=== PATIENT | female | born 1995 | race Caucasian/White ===

== ENCOUNTER 2025-04-23 10:03 | Outpatient (AMB) | payer OTHER, SELFPAY ==
--- OUTSIDE RECORDS SUMMARY | 2025-04-23 10:09 | XMS_ITS | Clinical Summary ---
Author Organization [facility] Address [address] [place] [id number] Care Team Providers Care Creative Arts Music Therapist Name Role Phone Ricardo Okeefe MD [facility] Eleni Kothari CARDIOLOGY NURSE PRACTITIONER Primary Care Provider + Allergies Active Allergy Reactions Criticality Noted Date Comments Allspice Anaphylaxis,Unknown, Othe r (See Comments) High 11/10/2014 Apple GI Intolerance,Nause a Only 07/30/2017 Carrot Itching 07/30/2017 Carrot Juice Itching 07/30/2017 Fruit Extracts Unknown,Other (See Comments) Medium 04/15/2015 Gluten Nausea Only Medium 07/23/2017 Gluten Protein GI Intolerance Medium 07/23/2017 Ibuprofen Hives,Other (See Comments) High 11/10/2014 Nsaids (Non-Steroidal Anti-Inflammatory Drug) Hives Medium 04/15/2015 Pineapple Itching 07/30/2017 strawberries Pineapple Fruit Extract Itching 07/30/2017 strawberries Pollen Extracts GI Intolerance 07/30/2017 Sulfa (Sulfonamide Antibiotics) Rash,Hives Medium 04/15/2015 Sulfamethoxazole-Trimet hoprim Hives,Other (See Comments) 11/26/2018 Medications CETIRIZINE HCL (ZYRTEC ORAL) Take by mouth. A ctive fluticasone propionate (FLONASE) 50 mcg/actuation nasal spray use 1 spray in each nostril QD 1 Inhaler 1 9 Active albuterol HFA (VENTOLIN; PROVENTIL) 90 mcg/actuation aerosol inhalerIndicat ions:Exercise- induced asthma Inhale 2 puffs every 6 hours as needed for wheezing or shortness of breath. 1 each 3 3 Active EPINEPHrine (EPIPEN) 0.3 mg/0.3 mL injectionIndic ations:Anaphyl actic reaction due to other food products, subsequent encounter 0.3 mL (0.3 mg total) by Intramuscular - THIGH route as needed for anaphylaxis Administer to thigh only.. 2 each 1 3 Active erythromycin (ILOTYCIN) 5 mg/gram (0.5 %) ophthalmic ointment Administer to both eyes 4 times a day Apply 1/4 inch inside lower lid to affected eye. 1 g 3 Active dextroamphetam ine-amphetamin e ER (ADDERALL XR) 10 MG 24 hr capsule Active benzonatate (TESSALON PERLES) 100 MG capsule Take 2 capsules (200 mg total) by mouth 3 times a day as needed for cough for up to 42 days. 42 capsule 1 3 Active predniSONE (DELTASONE) 50 MG tablet Take 1 tablet (50 mg total) by mouth daily for 5 days. 5 tablet 3 Active Active Problems Problem Noted Date Diagnosed Date Exercise-induced asthma 11/12/2022 Pelvic pain 03/12/2022 Dysmenorrhea 2022 Overview (11/12/2022): Last Assessment & Plan: Would likely benefit from another trial of ocp's. Will revisit after labs and imaging and labs done. Vaginismus (not due to a general medical conditi on) 2022 Overview (11/12/2022): Last Assessment & Plan: Referral to Pelvic Floor therapist Pt instructed to purchase a dilator kit online and start using. Intestinal malabsorption 06/28/2017 Overview (11/12/2022): Overview: She had positive tests that were high titer. She had a biopsy that was not diagnostic. She is off gluten currently. She is currently off lactose as well. She had positive tests that were high titer. She had a biopsy that was not diagnostic. She is off gluten currently. She is currently off lactose as well. Patient reports positive testing 07/14 Allergic reaction of correct medicinal substance properly administered 02/28/2017 Overview (11/12/2022): Overview: Allergy shot reaction 02/12 Allergy shot reaction 02/12 Anaphylactic reaction due to other food products, subsequent encounter 11/19/2016 Overview (11/12/2022): Overview: History of reacting to allspice. Skin testing neg- 11/12. History of reacting to allspice. Skin testing neg- 11/12. Perennial allergic rhinitis 09/17/2016 Overview (11/12/2022): Overview: 09/12: skin testing- positive for trees, grasses, weeds, mites, cat, dog, horse, feather. Started IT: 12/13 Overview: 09/12: skin testing- positive for trees, grasses, weeds, mites, cat, dog, horse, feather. Started IT: 12/13 She stopped in 05/16 (there had been a reaction). 09/12: skin testing- positive for trees, grasses, weeds, mites, cat, dog, horse, feather. Started IT: 12/13 She stopped in 05/16 (there had been a reaction). Wheezing 09/17/2016 Overview (11/12/2022): Overview: Uses prn albuterol. Uses prn albuterol. Attention or concentration deficit 12/16/2012 Myopia 03/26/2007 Resolved Problems Problem Noted Date Diagnosed Date Resolved Date Allergy to other foods 03/14/200508/09 Immunizations Immunization Administration Dates Next Due COVID-19 Vaccine (easy2map) Original Formulation (prior to Apr 2021) 08/19/2020,07/29/2020 DTaP Vaccine (INFANRIX/DAPTA ISABELLA) PEDIATRIC 04/01/1998,11/05/1994,1993,06/12,1993 HPV Quadrivalent 09/24/2006,05/27/2006, 6 Hep B, Adolescent or Pediatric 03/05/1995,1994,05/31/1994 Hib (HbOC) 11/05/1994, 4,1993,04/10 Influenza Vaccine - EGG FREE MDCK - SDV (FLUCELVAX) 02/12/2020 Influenza Vaccine - LIVE ATT ENUATED (FLUMIST) 04/06/2009,03/29/2008 Influenza Vaccine - STANDARD - SDV (FLUZONE/FLUARIX/FLULAVAL/AFLURIA) 01/25/2023,02/03/2021 Influenza, Unspecified 02/09/2011 MMR Live vaccine 04/01/1998,05/31/1994 Meningococcal Quadrivalent V accine (MENACTRA) 04/06/2009 OPV 04/01/1998, 5,1993,06/12,1993 Poliovirus vaccine IPV (IPOL) 1993, 994,1993 Tdap Vaccine (BOOSTRIX/ADACEL) 10/02/2020,2010 Tetanus 03/14/2005 Family History Medical History Relation Comments Anxiety disorder Father Asthma Father Ulcerative colitis Father Pancreatic cancer Maternal Uncle Diverticulosis Mother Relation Status Comments Father Alive Maternal Uncle Mother Alive Social History Tobacco Use Types Packs/Day Years Used Date Smoking Tobacco: Never Smokeless Tobacco: Never Tobacco Cessation:Counseling Given: Not Answered Alcohol Use Standard Drinks/Week Comments Not Currently 0 (1 standard drink = 0.6 oz pur e alcohol) Humiliation, Afraid, Rape, and Kick questionnair e Answer Date Recorded Within the last year, have y ou been afraid of your partner or ex-partner? No 11/12/2022 Within the last year, have y ou been humiliated or emotionally abused in other ways by your partner or ex-partner? No 11/12/2022 Physically Abused Not on file 11/12/2022 Sexually Abused Not on file 11/12/2022 Social Connection and Isolation Panel Answer Date Recorded In a typical week, how many times do you talk on the phone with family, friends, or neighbors? Three times a week 11/12/2022 Frequency of Social Gatherin gs with Friends and Family Not on file 11/12/2022 Attends Catholic Services Not on file 11/12 Active Member of Clubs or Organizations Not on f ile 11/12/2022 Attends Club or Organization Meetings Not on shana e 11/12/2022 Marital Status Not on file 11/12/2022 Overall Financial Resource Strain (CARDIA) Answe r Date Recorded How hard is it for you to pa y for the very basics like food, housing, medical care, and heating? Not very hard 11/12/2022 PRAPARE - Transportation Answer Date Re corded Lack of Transportation (Medical) Not on file 11/12/2022 In the past 12 months, has l ack of transportation kept you from meetings, work, or from getting things needed for daily living? No 11/12/2022 Housing Stability Vital Sign Answer Dandy e Recorded In the last 12 months, was t here a time when you were not able to pay the mortgage or rent on time? No 11/12/2022 Number of Places Lived in the Last Year Not on f ile 11/12/2022 In the last 12 months, was t here a time when you did not have a steady place to sleep or slept in a custodial (including now)? No 11/12/2022 Intimate Partner Violence Answer Date R ecorded Within the last year, have y ou been humiliated or emotionally abused in other ways by your partner or ex-partner? No 11/12/2022 Within the last year, have y ou been afraid of your partner or ex-partner? No 11/12/2022 Physically Abused Not on file 11/12/2022 Sexually Abused Not on file 11/12/2022 Housing Stability Answer Date Recorded In the last 12 months, was t here a time when you did not have a steady place to sleep or slept in a custodial (including now)? No 11/12/2022 In the last 12 months, was t here a time when you were not able to pay the mortgage or rent on time? No 11/12/2022 Number of Places Lived in the Last Year Not on f ile 11/12/2022 Comments No Sex and Gender Information Value Date Recorded Sex Assigned at Not on file Legal Sex Female 4:35 PM EST Gender Identity Not on file Sexual Orientation Not on file Occupation Industry Job Start Date Job End Date unemployed-grad in 08/2015 Not on file Not on file No t on file Last Filed Vital Signs Vital Sign Reading Time Taken Comments Blood Pressure 110/70 11/12/2022 12:59 PM EDT Pulse 73 04/24/2023 1:24 PM EST Temperature 37.1 C (98.8 F) 04/24/2023 1:24 PM EST Respiratory Rate 16 04/24/2023 1:24 PM EST Oxygen Saturation 98% 04/24/2023 1:24 PM EST Inhaled Oxygen Concentration - - Weight 73.9 kg (163 lb) 11/12/2022 12:59 PM EDT Height 166.4 cm (5' 5.5 ) 11/12/2022 12:59 PM ED T Body Mass Index 26.71 11/12/2022 12:59 PM EDT Plan of Treatment Health Maintenance Due Date Last Done Comments Blood Pressure 1993 Depression Screening 2005 Pneumococcal Vaccine (1 of 2 - PCV) 02/09/2012 HPV/Cotest 2023 COVID-19 Vaccine (3 - season) 2024 08/19/2020, 07/29/2020 Influenza Vaccine (#1) 2024 3, 02/03/2021, 02/12/2020, Additional history exists Cervical Cancer Screening 02/06/2025 Pap Smear 02/06/2025 02/06/2022, 10/15/2017 DTaP,Tdap,and Td Vaccines (9 - Td or Tdap) 10/02/2030 10/02/2020, 06/12/2010, 03/14/2005, Additional history exists Meningococcal Vaccines Completed 04/06/2009 Hepatitis C Screening Discontinued Meningococcal B Vaccines Aged Out No longer eligible based on patient's age to complete this topic Procedures Procedure Name Priority Date/Time Associated Diagnosis Comments LIQUID-BASED PAP, REFLEX HPV IF ASC-US Routine 10/15/2017 3:17 PM EDT Encounter for gynecological examination without abnormal finding from Last 3 Months or Most Recently Relevant to Health Maintenance Results * LB PAP, Screen, reflex HPV if ASC-US (10/15/2017 3:17 PM EDT) Case Report Gynecologic Cytology Report Case: [id number] Authorizing Provider: Dotty Zapata CNM Collected: 10/15/2017 03:17 PM First Screen: CARLOS ENRIQUE Broussard Received: 10/16/2017 11:41 AM Specimen: LIQUID-BASED PAP, SCREENING, Cervix 10/25/2017 6:34 PM EDT [facility] Adequacy SATISFACTORY FOR EVALUATION, ENDOCERVICAL/NÚÑEZ SFORMATION ZONE COMPONENT PRESENT 10/25/2017 6:34 PM EDT [facility] General Categorization NEGATIVE 10/25/2017 6:34 PM EDT [facility] Interpretation NEGATIVE FOR INTRAEPITHELIAL LESION / MALIGNANCY. 10/25/2017 6:34 PM EDT [facility] at 1834 EDT Educational Note This specimen was successfully pre-screened using the [employer] Automated ThinPrep Imaging System. Following automated imaging, selected toro from the slide were reviewed by a crop adjuster, and if indicated, by a pathologist. Cervicovaginal Cytology ( Pap Smear ) is a screening test with inherent, but low, probability of error, and is intended to aid in the detection of cervical squamous cell carcinoma and its precursors. Although very effective, the false negative rate for the ThinPrep method has been reported in the literature to be approximately 2%. 10/25/2017 6:34 PM EDT [facility] Clinical Information Routine Diagnosis: Encounter for gynecological examination without abnormal finding Code: Z01.419 10/25/2017 6:34 PM EDT [facility] Gross Description Received 1 ThinPrep preservative fluid collection vial labeled with the patient's name and medical record number or date of . 10/25/2017 6:34 PM EDT [facility] Specimen from genital system (specimen) CERVIX UTERI STRUCTURE / Unknown 10/15/2017 3:17 PM EDT 10/16/2017 11:41 AM EDT us Dotty RAI PATHOLOGY/CYTOLOGY ORDERABLES Fi nal Result [facility] [address] [place] [address] from Last 3 Months or Most Recently Relevant to Health Maintenance Insurance [facility] Care Teams Creative Arts Music Therapist Relationship Specialty Start Date End Date Eleni Mauricio FNP [address] [place] [phone] PCP - General Nurse Practitioner 11/26/24 Ricardo Okeefe MD 10/25/14
--- OUTSIDE RECORDS SUMMARY | 2025-04-23 10:09 | XMS_ITS | Encounter Summary ---
Author Organization [facility] Address [address] [place] [address] Care Team Providers Care Case Loader Operator Name Role Phone Ricardo Okeefe MD Unavailable Unavailab Melyssa Gonsalez MD Primary Care Provider Unava Jose Avitia MD Primary Care Provider [phone] Eleni Mauricio [facility] Primary Care Provider + Encounter Details Date Type Department Care Team (Late st Contact Info) Description 06/04/2017 Orders Only [facility] [address] [place] [address] [phone] Eleni Mauricio FNP [address] [place] [phone] Food allergy (Primary Dx); Wheezing Social History Tobacco Use Types Packs/Day Years Used Date Smoking Tobacco: Never Smokeless Tobacco: Never Alcohol Use Standard Drinks/Week Comments Yes 0 (1 standard drink = 0.6 oz pur e alcohol) socially Comments No Sex and Gender Information Value Date Recorded Sex Assigned at Not on file Legal Sex Female 4:35 PM EST Gender Identity Not on file Sexual Orientation Not on file Occupation Industry Job Start Date Job End Date unemployed-grad in 08/2015 Not on file Not on file No t on file documented as of this encounter Plan of Treatment Not on file documented as of this encounter Procedures Procedure Name Priority Date/Time Associated Diagnosis Comments H PYLORI, UREA BREATH TEST Routine 06/04/2017 5:49 PM EST Food allergy Wheezing documented in this encounter Results * H. pylori Breath Test, Adult (06/04/2017 5:49 PM EST) H. pylori Breath Test Negative Negative 06/06/2017 1:48 PM EST [facility] Comment: INTERPRETIVE INFORMATION: H. pylori Breath Test A negative result does not rule out the possibility of H.pylori infection. If clinical signs are suggestive of H. pylori infection, retest with a new specimen or an alternate method. Known causes of false-negative results include: 1. Use of antibiotics, proton pump inhibitors, and bismuth preparations during the preceding 2 weeks. 2. Administration of the breath test less than 4 weeks after completion of definitive therapy to eradicate H. pylori. 3. Premature or late collection of the post-dose specimen. Known causes of false-positive results include: 1. Patients with achlorhydria. 2. Rinsing the testing solution in the mouth, which can allow contact with urease-positive bacteria. 3. The presence of other gastric spiral organisms such as Helicobacter heilmanii. Performed by [facility], [address] [place] [address] [email or web address], Noe Dhillon MD, Lab. Director Exhaled air (substance) LUNG STRUCTURE / Unknown 06/04/2017 5:49 PM EST 06/04/2017 8:57 PM EST Eleni Mauricio [facility] LAB BLOOD ORDERABLES Fin al Result [facility] [address] [place] [phone] documented in this encounter Visit Diagnoses Diagnosis Food allergy- Primary Dermatitis due to food taken internally Wheezing documented in this encounter Care Teams Case Loader Operator Relationship Specialty Start Date End Date LabargeMelyssa MD PCP - General Family Practice 12/12/15 01/22/21 Jose Serna MD [address] [place] [phone] PCP - General Family Practice 01/23/21 11/25/24 Eleni Mauricio FNP [address] [place] [phone] PCP - General Nurse Practitioner 11/26/24 Ricardo Okeefe MD 10/25/14 documented as of this encounter
--- OUTSIDE RECORDS SUMMARY | 2025-04-23 10:09 | XMS_ITS | Clinical Summary ---
Author Organization [facility] Address [facility] [place] [address] Phone [email or web address] Care Team Providers Care Mycology Teacher Name Role Phone Unavailable Primary Care Provider Unavailabl e Allergies Active Allergy Reactions Criticality Noted Date Comments Apple Nausea Only 07/30/2017 Daucus Carota Itching 07/30/2017 Fruit Extracts Other (see comments) Medium 04/15/2015 Gluten Meal Nausea Only,GI intolerance Medium 07/24/19 18 Ibuprofen Hives,Rash,Other (se e comments) High 11/10/2014 Pollen Extract Other (see comments) 07/30/2017 Sulfa Antibiotics Hives,Rash Medium 04/15/2015 Sulfamethoxazole-Trimethopr im Hives,Other (see comments),Rash,GI intolerance Low 11/26/2018 Medications EPINEPHrine (EPIPEN) 0.3 MG/0.3ML injection syringe 0.3 mg once daily as needed. 3 Active cetirizine (ZyrTEC) 10 MG tablet Take 10 mg by mouth 1 (one) time each day. Active albuterol HFA (ProAir HFA) 108 (90 Base) MCG/ACT inhalerIndication s:Exercise-induce d asthma Inhale 2 puffs every 6 (six) hours if needed for wheezing or shortness of breath. 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 0.3 mL 4 Active Active Problems Problem Noted Date Diagnosed Date Anxiety 12/18/2022 IBS (irritable bowel syndrome) 12/18/2022 Exercise-induced asthma 11/12/2022 Assessment & Plan (04/14/2024 12:10 PM [facility] Asthma is unchanged. The patient is experiencing monthly daytime asthma symptoms. She is experiencing no nighttime asthma symptoms. Medications: no change. Orders: albuterol HFA (ProAir HFA) 108 (90 Base) MCG/ACT inhaler; Inhale 2 puffs every 6 (six) hours if needed for wheezing or shortness of breath. Take 2 puffs 20 minutes prior to exertional activities Dysmenorrhea 2022 Overview (12/18/2022): Last Assessment & Plan: Would likely benefit from another trial of ocp's. Will revisit after labs and imaging and labs done. Last Assessment & Plan: Would likely benefit from another trial of ocp's. Will revisit after labs and imaging and labs done. Allergic reaction of correct medicinal substance properly administered 02/28/2017 Overview (12/18/2022): Overview: Allergy shot reaction 02/12 Allergy shot reaction 02/12 Anaphylactic reaction due to other food products, subsequent encounter 11/19/2016 Overview (12/20/2022): Overview: History of reacting to allspice. Skin testing neg- 11/12. History of reacting to allspice. Skin testing neg- 11/12. Attention or concentration deficit 12/16/2012 Immunizations Immunization Administration Dates Next Due COVID-19 Pfizer 12yrs+ (Seas onal) COMIRNATY mRNA 30 mcg/0.3 mL (CVX-309) 07/11/2023 Influenza, (Afluria Fluarix Flulaval Fluzone) quad, PF (CVX-150) 01/25/2023 Influenza, unspecified (CVX-88) 02/03/2021,02/11 Family History Medical History Relation Name Comments Asthma Father G Cat Allergy Autoimmune disease Father G Ulcerativ e Colitis age 57 Depression Father G Diabetes Maternal Grandmother L Type 1 Heart disease Maternal Grandmother L Experi enced Heart Attacks Diverticulitis Mother partial colon resection Cancer Mother's Brother P Pancreatic Relation Name Status Comments Father G Maternal Grandmother L Mother Mother's Brother P Social History Tobacco Use Types Packs/Day Years Used Date Smoking Tobacco: Never Passive Smoke Exposure: Never Smokeless Tobacco: Never Tobacco Cessation:Counseling Given: Not Answered Alcohol Use Standard Drinks/Week Comments Not Currently 1 (1 standard drink = 0.6 oz pure alcohol) maybe a couple drinks every few months Intimate Partner Violence Answer Date R ecorded Insults You Not on file 10/22/2020 Threatens You Not on file 10/22/2020 Screams at You Not on file 10/22/2020 Physically Hurt Not on file 10/22/2020 Intimate Partner Violence Score Not on file 10/22/2020 Alcohol Use Answer Date Recorded Alcohol Use Status Not Currently 12/18/2022 Depression Answer Date Recorded PHQ Total Score 2 12/18/2022 Stress Answer Date Recorded Stress in your Life Not on file 03/04/2024 Dealing with Stress 3 03/04/2024 Comments No Sex and Gender Information Value Date Recorded Sex Assigned at Female 10/02/2022 1:48 PM CDT Legal Sex Female 12:42 AM CDT Gender Identity Female 10/02/2022 1:48 PM CDT Sexual Orientation Not on file Last Filed Vital Signs Vital Sign Reading Time Taken Comments Blood Pressure 120/69 04/14/2024 11:35 AM PST Pulse 65 04/14/2024 11:35 AM PST Temperature 36.8 C (98.2 F) 04/14/2024 11:35 AM PST Respiratory Rate 18 04/14/2024 11:35 AM PST Oxygen Saturation 98% 04/14/2024 11:35 AM PST Inhaled Oxygen Concentration - - Weight 72.8 kg (160 lb 6.4 oz) 04/14/2024 11:35 AM PST Height 165.1 cm (5' 5 ) 04/14/2024 11:35 AM PST Body Mass Index 26.69 04/14/2024 11:35 AM PST Plan of Treatment Health Maintenance Due Date Last Done Comments Dental Cleaning/Exam 1993 HPV only / HPV + Pap 1993 HPV Immunization (1 - 2-dose series) 02/09/2004 Hepatitis B Immunization (1 of 3 - 19+ 3-dose series) 02/09/2012 Covid-19 Immunization (6 - season) 2024 07/11/2023, 01/16/2022, 03/11/2021, Additional history exists Influenza Immunization (#1) 2024 01/25/2023, 02/26/2022, 02/03/2021, Additional history exists Cervical Cancer Screening Combo 02/28/2026 Pap only testing 02/28/2026 02/28/2023 Tetanus Diphtheria and Pertussis Immunization (2 - Td or Tdap) 10/02/2030 10/02/2020 Asthma Spirometry Discontinued 10/25/2023, 07/11/2023 HIB Immunization Aged Out No longer e ligible based on patient's age to complete this topic Hepatitis A Immunization Aged Out No longer eligible based on patient's age to complete this topic Pneumococcal Immunization Discontinued Polio Immunization Aged Out No longer eligible based on patient's age to complete this topic Varicella Immunization Aged Out No lo nger eligible based on patient's age to complete this topic Procedures Procedure Name Priority Date/Time Associated Diagnosis Comments SPIROMETRY WITH FLOW VOLUME LOOP Routine 10/25/2023 4:06 PM PDT Wellness examination from Last 3 Months or Most Recently Relevant to Health Maintenance Results * Spirometry with Flow Volume Loop CPT 41999 (10/25/2023 4:06 PM PDT) us Filipe Presley MD PFT ORDERABLES Final Result from Last 3 Months or Most Recently Relevant to Health Maintenance Insurance PILY ARIZA COPAY
--- OUTSIDE RECORDS SUMMARY | 2025-04-23 10:09 | XMS_ITS | Encounter Summary ---
Author Organization [facility] Address [address] [place] [address] Care Team Providers Care Plunger Machine Operator Name Role Phone Ricardo Okeefe MD Unavailable Unavailab Melyssa Gonsalez MD Primary Care Provider Unava Jose Avitia MD Primary Care Provider [phone] Eleni Mauricio Primary Care Provider + Encounter Details Date Type Department Care Team (Latest Contact Info) Description 08/26/2017 Lab Requisition [facility] [address] [place] [phone] Dotty Zapata CNM [address] [address] Other specified noninflammatory disorders of vagina Social History Tobacco Use Types Packs/Day Years Used Date Smoking Tobacco: Never Smokeless Tobacco: Never Alcohol Use Standard Drinks/Week Comments No 0 (1 standard drink = 0.6 oz [...] Procedure Name Priority Date/Time Associated Diagnosis Comments CULTURE, GENITAL Routine 08/26/2017 5:49 PM EDT Other specified noninflammatory disorders of vagina documented in this encounter Results * Culture, Genital (08/26/2017 5:49 PM EDT) Culture Normal addis 08/28/2017 11:29 AM EDT [facility] Specimen from genital system (specimen) CERVIX UTERI STRUCTURE / Unknown 08/26/2017 5:49 PM EDT 08/26/2017 5:49 PM EDT us Dotty RAI MICROBIOLOGY - GENERAL ORDERABLE S Final Result [facility] [address] [place] [address], documented in this encounter Visit Diagnoses Diagnosis Other specified noninflammatory disorders of vagina documented in this encounter Care Teams Plunger Machine Operator Relationship Specialty Start Date End Date Melyssa Ch MD PCP - General Family Practice 12/12/15 01/22/21 Jose Serna MD [address] [place] [phone] PCP - General Family Practice 01/23/21 11/25/24 Eleni Mauricio FNP [address] [place] [phone] PCP - General Nurse Practitioner 11/26/24 Ricardo Okeefe MD 10/25/14 documented as of this encounter
--- OUTSIDE RECORDS SUMMARY | 2025-04-23 10:09 | XMS_ITS | Encounter Summary ---
Author Organization [facility]al [facility] Address [address] [place] [address] Care Team Providers Care Dredge Pumper Name Role Phone Ricardo Okeefe MD Unavailable Unavailab Melyssa Gonsalez MD Primary Care Provider Unava Jose Avitia MD Primary Care Provider [phone] Eleni Mauricio Primary Care Provider + Encounter Details Date Type Department Care Team (Latest Contact Info) Description 10/16/2017 Lab Requisition [facility] [address] [place] [address] [phone] Dotty Zapata CNM [address] [address] Encounter for gynecological examination without abnormal finding Social History Tobacco Use Types Packs/Day Years [...] Procedure Name Priority Date/Time Associated Diagnosis Comments MISCELLANEOUS TEST [facility] Routine 10/15/2017 3:17 PM EDT Encounter for gynecological examination without abnormal finding LIQUID-BASED PAP, REFLEX HPV IF ASC-US Routine 10/15/2017 3:17 PM EDT Encounter for gynecological examination without abnormal finding documented in this encounter Results * [facility] (10/15/2017 3:17 PM EDT) [facility] Result SEE NOTE 10/18/2017 3:58 AM EDT [facility] Comment: Test name Result Flag Units RefIntvl HPV, High Risk by TMA Negative INTERPRETIVE INFORMATION: HPV High Risk by TMA, ThinPrep This test detects E6/E7 viral messenger RNA of the high-risk HPV types 16, 18, 31, 33, 35, 39, 45, 51, 52, 56, 58, 59, 66, and 68 associated with cervical cancer and its precursor lesions. Cross-reactivity with low-risk HPV genotypes 26, 67, 70, and 82 may occur. Sensitivity may be affected by specimen collection methods, stage of infection, and the presence of interfering substances. Results should be interpreted in conjunction with other available laboratory and clinical data. This test is intended for medical purposes only and is not valid for the evaluation of suspected sexual abuse or for other forensic purposes. HPV testing should not be used for screening or management of atypical squamous cells of undetermined significance (ASCUS) in women under age 21. Performed by [facility], [address] [place] [address] [email or web address], Noe Dhillon MD, Lab. Director Specimen of unknown material (specimen) 10/15/2017 3:17 PM EDT 10/16/2017 5:07 PM EDT us Dotty Zapata CNM BODY FLUIDS AND STOOLS ORDERABLE S Final Result [facility] [address] [phone] * LB PAP, Screen, reflex HPV if ASC-US (10/15/2017 3:17 PM EDT) Case Report Gynecologic Cytology Report Case: [id number] Authorizing Provider: Dotty Zapata CNM Collected: 10/15/2017 [...] / MALIGNANCY. 10/25/2017 6:34 PM EDT [facility] at 1834 EDT Educational Note This specimen was successfully pre-screened using the [employer] Automated ThinPrep Imaging System. Following automated imaging, selected toro from the slide were reviewed by a methods specialist, and if indicated, by a pathologist. Cervicovaginal [...] EDT 10/16/2017 11:41 AM EDT us Dotty Zapata CNM PATHOLOGY/CYTOLOGY ORDERABLES Fi nal Result [facility] [address] [place] [address] documented in this encounter Visit Diagnoses Diagnosis Encounter for gynecological examination without abnormal finding documented in this encounter Care Teams Dredge Pumper Relationship Specialty Start Date End Date Melyssa Ch MD PCP - General Family Practice 12/12/15 01/22/21 Jose Serna MD [address] [place] [phone] PCP - General Family Practice 01/23/21 11/25/24 Eleni Mauricio FNP [address] [place] [phone] PCP - General Nurse Practitioner 11/26/24 Ricardo Okeefe MD 10/25/14 documented as of this encounter
--- NOTE | 2025-04-23 11:18 | AM.OFFWIN_ITS ---
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 She also feels itchy eyes with production of some pus since yesterday. Allergies ibuprofen Allergy (Intermediate, Verified 04/23/25 11:31) Hives sulfamethoxazole (From Bactrim) Allergy (Intermediate, Verified 04/23/25 11:31) hives trimethoprim (From Bactrim) Allergy (Intermediate, Verified 04/23/25 11:31) hives Do you need a note to return to daycare/school/sports/work: No HPI HPI Comments History of Present Illness Details History of Present Illness The patient is a 30-year-old female presenting with a two-day history of symptoms including blocked ears, subjective fever, body aches, chills, and eye discharge. - The patient reports feeling unwell for about two days, starting with a sensation of her ears being blocked. - She felt feverish and recorded a tempe rature in the high 98s to low 99s, reaching 99.9?F last night. - Associated symptoms include body stiff ness, achiness, and chills. - She experienced mild, self-resolved na usea yesterday. No vomiting or diarrhea - The patient has a known history of ast hma and reports that she seems to get bronchitis every Rosas. - She reports some chest tightness but d enies shortness of breath or wheezing. - She has used her rescue inhaler once r ecently for these symptoms. Review of Systems - General: Reports feeling feverish with a temperature up to 99.9?F, body stiffness, achiness, and chills. - Eyes: Reports waking with discharge wi thout eye pain - Ears: Reports ears feeling blocked wit h a sensation of drainage. - Throat: Reports pain with talking. No trouble swallowing - Respiratory: Reports some chest tightn ess. Denies shortness of breath or wheezing. - Gastrointestinal: Reports mild nausea that has since subsided. Denies vomiting or diarrhea. Physical Exam General Appearance: Normal appearance, well developed. No acute distress HEENT: Normocephalic, atraumatic. No significant conjunctival injection. Clear watery discharge noted from both eyes without mucopurulent discharge. Middle ear effusions noted bilaterally No erythema or bulging of the membrane itself.Clear nasal drainage present Oropharynx clear without erythema or exudate. No cervical lymphadenopathy palpated. Cardiac: Regular rate and rhythm. No murmurs. Pulmonary: No respiratory distress. Clear to auscultation bilaterally. No wheezing or crackles heard. Musculoskeletal: Moving all extremities spontaneously and against gravity. Mental Status: Alert and Oriented x 3 Psychiatric: Normal mood. Normal affect. Physical Exam Vital Signs: Last Vital Signs Temp 99.4 F 04/23/25 11:22 Pulse 89 04/23/25 11:22 BP 108/70 04/23/25 11:22 Pulse Ox 98 04/23/25 11:22 Oxygen Delivery Method Room Air 04/23/25 11:22 BMI result Body Mass Index 28.3 Results AMB Rapid Strep AMB Rapid Strep Negative Last Edit by Elvin Silveira MA on 04/23/25 11:44 Results Reviewed Results Reviewed: Laboratory Last Values Strep Scn Rapid Clinic Negative 04/23/25 11:39 Assessment & Plan Assessment & Plan (1) Viral conjunctivitis: Code(s): B30.9 - Viral conjunctivitis, unspecified (2) Viral URI: Code(s): J06.9 - Acute upper respiratory infection, unspecified Plan - The patient's presentation with low-grade fever, myalgias, chills, and upper respiratory symptoms, along with a negative rapid strep test, is most consistent with a viral illness. - A respiratory panel for COVID-19, influenza, and RSV is pending. - Advised supportive care, including rest and increased fluid intake. - Discussed clear drainage from the eyes without significant conjunctival injection or mucopurulent discharge is consistent with viral conjunctivitis. Recommended warm compresses to the eyes. - An hgkl-ygj-xefkjas antihistamine such as Brigid or Zyrtec may help with nasal drainage and eye itching. - Prescribed benzonatate (Tessalon Perles) for cough, to be taken up to every 8 hours as needed, particularly at bedtime to aid sleep. - Advised to use her rescue inhaler every 4-6 hours as needed for chest tightness, wheezing, or coughing attacks. - Instructed to monitor for worsening symptoms such as fevers above 100.4?F, increased shortness of breath, worsening cough, or chest pain and seek medical attention if these symptoms occur. Patient was informed and verbally consented to the use of an ambient scribe for clinic note documentation during the visit. Orders: Orders AMB Rapid Strep Screen 04/23/25 Syl Farooq PA-C Z13.9 - Encounter for screening, unspecified SARS-CoV2/FLU/RSV 04/23/25 Cee Ruth MD R09.89 - Other specified symptoms and signs involving the circulatory and respiratory systems Medications: New benzonatate 200 mg PO TID PRN 20 caps 0RF cough Cee Ruth MD Coding Level of Care Code New Pt Level 3 (91571) Diagnoses Viral conjunctivitis B30.9 Viral URI J06.9
[2025-04-23 11:22] VITALS: BP 108/70; PULSE 89; TEMP 37.4; O2SAT 98; BMI 28.3
== END 2025-04-23 12:16 | disposition home or self-care (01) ==
PROVIDERS: Visit Provider Family Medicine
DX: Z13.9 Encounter for screening, unspecified (principal)

== ENCOUNTER 2025-04-23 10:03 | Outpatient (REF) | payer OTHER, SELFPAY ==
[2025-04-23 15:33] LABS: Resp Syncy Virus RNA Qual PCR NEGATIVE (Negative); SARS COV2 PCR INHOUSE NEGATIVE (Negative)
== END 2025-04-23 10:04 | disposition home or self-care (01) ==
LOC: HO.LAB 10:03
PROVIDERS: Family Medicine
DX: B30.9 Viral conjunctivitis, unspecified (principal); J06.9 Acute upper respiratory infection, unspecified; B97.89 Other viral agents as the cause of diseases classified elsewhere
CPT/HCPCS: 87637; 87880

== ENCOUNTER 2025-04-27 08:02 | Outpatient (AMB) | payer OTHER, SELFPAY ==
[2025-04-27 08:06] VITALS: BP 110/60; PULSE 100; O2SAT 98; BMI 28.6
--- NOTE | 2025-04-27 08:06 | AM.OFFWIN_ITS ---
Intake Vital Signs 04/27/25 08:06 Height 5 ft 5 in Weight 172 lb BMI 28.6 BP 110/60 Blood Pressure Location Rt brachial Position Sitting Pulse 100 Pulse Source Pulse Oximeter Pulse Oximetry (%) 98 Oxygen Delivery Method Room Air Intake Visit Reasons: EP-lt eye swollen & itchy Intake Note: Patient presents c/o left eye redness, swelling, watery since last night Patient Tobacco Use Status: Never used Tobacco Allergies ibuprofen Allergy (Intermediate, Verified 04/27/25 08:10) Hives sulfamethoxazole (From Bactrim) Allergy (Intermediate, Verified 04/27/25 08:10) hives trimethoprim (From Bactrim) Allergy (Intermediate, Verified 04/27/25 08:10) hives HPI HPI Comments History of Present Illness Details Patient is a 30yo F who presents to office with L eye symptoms She was seen on 04/23 for URI symptoms; tested negative for Covid/Flu She states her congestion and cough are improving and thought she was getting better States last night she rubbed her L eye once and had increased irritation and purulent discharge She has been wearing glasses; her neice at home is + pink eye on antibiotic drops + worsening irritation and discharge thr oughout hours last night Woke up this morning with + L eyelid edema and discharge crusted shut Pt denies additional trauma or injury No visual changes 0/10 pain currently She is visiting and is traveling home tomorrow [facility] Social History Patient Tobacco Use Status: Never used Tobacco Review of Systems Const Denies chills and Denies fever(s) Eyes Denies blurry vision, Denies change in vision, Reports eye discharge, Reports irritation, Reports itchy eyes, Denies eye pain, Reports requires corrective lenses and Denies photophobia ENT Denies otalgia and Reports nasal congestion Card Denies dyspnea Resp Denies cough and Denies dyspnea Aller/Immun Reports itchy eyes Physical Exam Exam Exam: General: Non-toxic, NAD. Speaking full sentences. Skin: Warm dry throughout L upper eyelid + edematous with slight erythema. No other periorbital edema or erythema appreciated. No rashes noted Eye: EOMI, PERRLA. No pain with EOM. No photophobia. L eye + conjunctival erythema with yellow discharge crusted along bottom eyelid lashes. No FB noted under L upper or lower eyelid. No ttp L periorbital region Respiratory: No respiratory distress Neurology: Alert. No aphasia or facial droop. Gait without abnormality Psych: Good mood and affect Vital Signs: Last Vital Signs Pulse 100 04/27/25 08:06 BP 110/60 04/27/25 08:06 Pulse Ox 98 04/27/25 08:06 Oxygen Delivery Method Room Air 04/27/25 08:06 BMI result Body Mass Index 28.6 Eyes Direct Ophthalmoscopy: No photophobia Assessment & Plan Assessment & Plan (1) Conjunctivitis: Code(s): H10.9 - Unspecified conjunctivitis Qualifiers: Conjunctivitis type: acute Acute conjunctivitis type: bacterial Laterality: left Qualified Code(s): H10.32 - Unspecified acute conjunctivitis, left eye Plan: Patient seen and evaluated. + L conjunctivitis on exam Ofloxacin to pharmacy Discussed glasses use, hand hygiene, pillow case cleaning, head elevation, warm compress Patient gave verbal understanding and had no additional questions or concerns at time of discharge All questions answered Medications: New ofloxacin 0.3% put 1-2 drps into affected L eye every 4h (while awake) x 2 days, then 1-2 drps 4 times/day days 3-7 ophthalmic (eye) 10 mL 0RF Coding Level of Care Code Est Pt Level 3 (42957) Diagnoses Acute bacterial conjunctivitis of left eye H10.32 Conjunctivitis type: acute Acute conjunctivitis type: bacterial Laterality: left
--- OUTSIDE RECORDS SUMMARY | 2025-04-27 09:27 | XMS_ITS | Clinical Summary ---
Author Organization Marycruz Beal [facility] Address [address] [place] [address] Care Team Providers Care Airborne Operations Superintendent Name Role Phone Ricardo Okeefe MD [facility] Eleni Kothari ENVIRONMENTAL HEALTH OFFICER Primary Care Provider + Allergies Active Allergy [...] Immunization Administration Dates Next Due COVID-19 Vaccine ([email or web address]) Original Formulation (prior to Apr 2021) 08/19/2020,07/29/2020 [...] and Family Not on file 11/12/2022 Attends [employer] Not on file 11/12 Active Member [...] place to sleep or slept in a retirement (including now)? No 11/12/2022 Intimate Partner Violence [...] place to sleep or slept in a retirement (including now)? No 11/12/2022 In the last [...] EDT) Case Report Gynecologic Cytology Report Case: [id number] Authorizing Provider: Dotty Zapata CNM Collected: 10/15/2017 [...] This specimen was successfully pre-screened using the [employer] Automated ThinPrep Imaging System. Following automated imaging, selected toro from the slide were reviewed by a managed care specialist, and if indicated, by a pathologist. [...] ORDERABLES Fi nal Result [facility] [address] [place] [address] from Last 3 Months or Most Recently Relevant to Health Maintenance Insurance [facility] Care Teams Airborne Operations Superintendent Relationship Specialty Start Date End Date Eleni Mauricio FNP [address] [place] [phone] PCP - General Nurse Practitioner 11/26/24 Ricardo Okeefe MD 10/25/14
--- OUTSIDE RECORDS SUMMARY | 2025-04-27 09:27 | XMS_ITS | Clinical Summary ---
Author Organization [facility] Address [place] [address] Phone [email or web address] Care Team Providers Care Game Artist Name Role Phone Unavailable Primary Care Provider [...] 11/12/2022 Assessment & Plan (04/14/2024 12:10 PM [facility]): Asthma is unchanged. The patient is experiencing [...] * Spirometry with Flow Volume Loop CPT 56332 (10/25/2023 4:06 PM PDT) us Filipe Presley MD PFT ORDERABLES Final Result from Last 3 Months or Most Recently Relevant to Health Maintenance Insurance PILY ARIZA COPAY
--- OUTSIDE RECORDS SUMMARY | 2025-04-27 09:27 | XMS_ITS | Encounter Summary ---
Author Organization [facility]ruz Beal [facility] Address [address] [place] [address] Care Team Providers Care Fish Hatchery Inspector Name Role Phone Ricardo Okeefe MD Unavailable Unavailab Melyssa Gonsalez MD Primary Care Provider Unava Jose Avitia MD Primary Care Provider [phone] Eleni Mauricio Primary Care Provider + Encounter Details Date Type Department Care Team (Latest Contact Info) Description 10/16/2017 Lab Requisition [facility] [address] [place] [address] [phone] Dotty Zapata CNM [address] [address] Encounter for gynecological examination without abnormal finding [...] finding documented in this encounter Results * [facility] (10/15/2017 3:17 PM EDT) [facility] Result SEE NOTE 10/18/2017 3:58 AM EDT [facility] Comment: Test name Result Flag Units [...] in women under age 21. Performed by [facility], [address] [place] [address] [email or web address], Noe Dhillon MD, Lab. Director Specimen of unknown material (specimen) 10/15/2017 3:17 PM EDT 10/16/2017 5:07 PM EDT us Dotty Zapata CNM BODY FLUIDS AND STOOLS ORDERABLE S Final Result [facility] [address] [address] * LB PAP, Screen, reflex HPV if ASC-US (10/15/2017 3:17 PM EDT) Case Report Gynecologic Cytology Report Case: [id number] Authorizing Provider: Dotty Zapata CNM Collected: 10/15/2017 [...] This specimen was successfully pre-screened using the [employer] Automated ThinPrep Imaging System. Following automated imaging, selected toro from the slide were reviewed by a drug enforcement agent, and if indicated, by a pathologist. Cervicovaginal [...] ORDERABLES Fi nal Result [facility] [address] [place] [address] documented in this encounter Visit Diagnoses Diagnosis Encounter for gynecological examination without abnormal finding documented in this encounter Care Teams Fish Hatchery Inspector Relationship Specialty Start Date End Date Melyssa Ch MD PCP - General Family Practice 12/12/15 01/22/21 Jose Serna MD [address] [place] [address] PCP - General Family Practice 01/23/21 11/25/24 Eleni Mauricio FNP [address] [place] [phone] PCP - General Nurse Practitioner 11/26/24 Ricardo Okeefe MD 10/25/14 documented as of this encounter
--- OUTSIDE RECORDS SUMMARY | 2025-04-27 09:27 | XMS_ITS | Encounter Summary ---
Author Organization [facility]al [facility] Address [address] [place] [address] Care Team Providers Care Ladle Repairer Name Role Phone Ricardo Okeefe MD Unavailable Unavailab Melyssa Gonsalez MD Primary Care Provider Unava Jose Avitia MD Primary Care Provider [phone] Eleni Mauricio [facility] Primary Care Provider + Encounter Details Date Type Department Care Team (Late st Contact Info) Description 06/04/2017 Orders Only [facility] [address] [place] [address] [phone] Eleni Mauricio FNP [address] [place] [phone] Food allergy (Primary Dx); Wheezing Social History [...] Test Negative Negative 06/06/2017 1:48 PM EST [facility] Comment: INTERPRETIVE INFORMATION: H. pylori Breath Test [...] organisms such as Helicobacter heilmanii. Performed by [facility], [address] [place] [address] [email or web address], Noe Dhillon MD, Lab. Director Exhaled air (substance) LUNG STRUCTURE / Unknown 06/04/2017 5:49 PM EST 06/04/2017 8:57 PM EST Eleni Mauricio [facility] LAB BLOOD ORDERABLES Fin al Result [facility] [address] [place] [address] documented in this encounter Visit Diagnoses Diagnosis Food allergy- Primary Dermatitis due to food taken internally Wheezing documented in this encounter Care Teams Ladle Repairer Relationship Specialty Start Date End Date LabargeMelyssa MD PCP - General Family Practice 12/12/15 01/22/21 Jose Serna MD [address] [place] [phone] PCP - General Family Practice 01/23/21 11/25/24 Eleni Mauricio FNP [address] [place] [phone] PCP - General Nurse Practitioner 11/26/24 Ricardo Okeefe MD 10/25/14 documented as of this encounter
--- OUTSIDE RECORDS SUMMARY | 2025-04-27 09:27 | XMS_ITS | Encounter Summary ---
Author Organization [facility]al [facility] Address [address] [place] [address] Care Team Providers Care Process Consultant Name Role Phone Ricardo Okeefe MD Unavailable Unavailab Melyssa Gonsalez MD Primary Care Provider Unava Jose Avitia MD Primary Care Provider [phone] Eleni Mauricio Primary Care Provider + Encounter Details Date Type Department Care Team (Latest Contact Info) Description 08/26/2017 Lab Requisition [facility] [address] [place] [address] [phone] Dotty Zapata CNM [address] [address] Other specified noninflammatory disorders of vagina Social [...] Culture Normal addis 08/28/2017 11:29 AM EDT [facility] Specimen from genital system (specimen) CERVIX UTERI STRUCTURE / Unknown 08/26/2017 5:49 PM EDT 08/26/2017 5:49 PM EDT us Dotty RAI MICROBIOLOGY - GENERAL ORDERABLE S Final Result [facility] [address] [place] [address], documented in this encounter Visit Diagnoses Diagnosis Other specified noninflammatory disorders of vagina documented in this encounter Care Teams Process Consultant Relationship Specialty Start Date End Date Melyssa Ch MD PCP - General Family Practice 12/12/15 01/22/21 Jose Serna MD [address] [place] [address] PCP - General Family Practice 01/23/21 11/25/24 Eleni Mauricio FNP [address] [place] [phone] PCP - General Nurse Practitioner 11/26/24 Ricardo Okeefe MD 10/25/14 documented as of this encounter
== END 2025-04-27 08:51 | disposition home or self-care (01) ==
PROVIDERS: Visit Provider Physician Assistant
DX: H10.32 Unspecified acute conjunctivitis, left eye (principal)